=== PATIENT | male | born 1980 | race African-American/Black ===

== ENCOUNTER 2016-12-27 23:04 | Emergency (ER) | payer SELFPAY ==
[~2016-12-27] VITALS: Ht 188 cm; Wt 86.2 kg
[2016-12-27] MEDS ORDERED: NKM (23:16)
[2016-12-27 23:20] VITALS: BP 143/64
[2016-12-27] MEDS ORDERED: HYDROmorphone 1mg/ml Carpuject IVP ONE (23:30)
--- NOTE | 2016-12-27 23:34 | Emergency Room Report ---
History of Present Illness General Chief Complaint: Chest Pain Source: Patient Present Illness HPI This is a 36-year-old male with no past medical history. He presents with chief complaint abdominal pain chest pain. Onset for a day and half now. Pain is diffuse in nature. His whole abdomen is hurting. He has multiple episode vomiting. He said his 20. No blood. No diarrhea. No fever or chills. Chest pain started at the same time. Localized the left area. No radiation. No diaphoresis. No exertional component. Pain is 10 out of 10. No had this problem before. Allergies: Coded Allergies: No Known Allergies (Unverified , 12/27/16) Patient History Past Medical History: see triage record, old chart reviewed Past Surgical History: none Pertinent Family History: none Social History: Denies: smoking Immunizations: other Reviewed Nursing Documentation: PMH: Agreed, PSxH: Agreed Nursing Documentation-PMH Past Medical History: No Stated History Review of Systems Eye: Denies: eye pain, blurred vision ENT: Denies: ear pain, nose congestion, throat swelling Respiratory: Denies: cough, shortness of breath Cardiovascular: Reports: chest pain, Denies: palpitations Gastrointestinal: Reports: abdominal pain, nausea, vomiting, Denies: diarrhea Musculoskeletal: Denies: back pain, joint pain Skin: Denies: rash Neurological: Denies: headache, numbness Endocrine: Denies: increased thirst, increased urine Hematologic/Lymphatic: Denies: easy bruising All Other Systems: negative except mentioned in HPI Physical Exam Vital Signs Date Time Temp Pulse Resp B/P (MAP) Pulse Ox O2 Delivery O2 Flow Rate FiO2 12/27/16 23:13 46 15 143/64 100 Room Air vitals normal except for bradycardia Sp02 EP Interpretation: reviewed, normal General Appearance: well appearing, no apparent distress, alert Head: normocephalic, atraumatic Eyes: bilateral eye PERRL, bilateral eye EOMI ENT: hearing grossly normal, normal pharynx Neck: full range of motion, supple, no meningismus Respiratory: lungs clear, normal breath sounds, other - Diffuse tenderness with palpation Cardiovascular #1: regular rate, rhythm, no murmur Gastrointestinal: normal bowel sounds, no mass, no organomegaly, no bruit, non- distended, tenderness - diffuse Musculoskeletal: back normal, gait/station normal, normal range of motion Psychiatric: mood/affect normal Skin: warm/dry Medical Decision Making Diagnostic Impression: Primary Impression: Abdominal pain Qualified Codes: R10.84 - Generalized abdominal pain Additional Impressions: Nausea & vomiting Qualified Codes: R11.2 - Nausea with vomiting, unspecified Dehydration Chest pain Qualified Codes: R07.9 - Chest pain, unspecified ER Course patient presents with abdominal pain and nausea and vomiting. No evidence of obstruction or acute abdomen. This may be secondary to gastroenteritis versus food poisoning could be secondary to alcohol since he drinks regularly. He felt better now. Tolerated by mouth. His chest pain is probably secondary to vomiting and has reflux. Lab Results Impression labs unremarkable EKG Diagnostic Results Rate: bradycardiac Rhythm: NSR ST Segments: no acute changes Rhythm Strip Diag. Results Rhythm Strip Time: 23:34 EP Interpretation: yes Rate: 50 Rhythm: NSR, no PVC's, no ectopy Last Vital Signs Date Time Temp Pulse Resp B/P (MAP) Pulse Ox O2 Delivery O2 Flow Rate FiO2 12/27/16 23:13 46 15 143/64 100 Room Air Status: improved Disposition: HOME, SELF-CARE Condition: Stable Scripts Ondansetron (Zofran) 4 Mg Tablet 4 MG ORAL Q6H Y for Nausea & Vomiting, #10 TAB 0 Refills Prov: LIANNE GAGNON M.D. 12/28/16 Additional Instructions: Followup with your DrMae in 2-3 days if not better. Return if worse. LIANNE GAGNON M.D. Dec 27, 2016 23:34
[2016-12-27 23:49] LABS: EOSINOPHILS % (AUTO) 0.1 % (0.0-3.0); LYMPHOCYTES % (AUTO) 10.8 % (20.0-45.0); MEAN CORPUSCULAR HEMOGLOBIN 24.9 PG (27.0-31.0); MEAN CORPUSCULAR HGB CONC 32.2 G/DL (32.0-36.0); MEAN CORPUSCULAR VOLUME 77 FL (80-99); MEAN PLATELET VOLUME 6.8 FL (6.5-10.1); MONOCYTES % (AUTO) 5.6 % (1.0-10.0); NEUTROPHILS % (AUTO) 82.6 % (45.0-75.0); PLATELET COUNT 288 K/UL (150-450); RED BLOOD COUNT 5.81 M/UL (4.70-6.10); RED CELL DISTRIBUTION WIDTH 12.9 % (11.6-14.8); WHITE BLOOD COUNT 14.1 K/UL (4.8-10.8)
[2016-12-27 23:54] LABS: APPEARANCE,URINE CLEAR; KETONES,URINE 4+ (NEGATIVE); LEUKOCYTE ESTERASE ,URINE NEGATIVE (NEGATIVE); NITRITE,URINE NEGATIVE (NEGATIVE); PH,URINE 6 (4.5-8.0); PROTEIN,URINE 2+ (NEGATIVE); UROBILINOGEN,URINE 1 MG/DL (0.0-1.0)
[2016-12-28] LABS: RBC,URINE 0-2 /HPF (0 - 0); SQUAMOUS EPITHELIAL CELL,UR FEW /LPF (NONE/OCC); WBC,URINE 0 /HPF (0 - 0)
[2016-12-28 00:07] LABS: ALANINE AMINOTRANSFERASE 24 U/L (12-78); ALBUMIN/GLOBULIN RATIO 1.4 (1.0-2.7); ANION GAP 16 mmol/L (5-15); ASPARTATE AMINO TRANSFERASE 23 U/L (15-37); CALCIUM 9.6 MG/DL (8.5-10.1); CARBON DIOXIDE 23 MMOL/L (21-32); CHLORIDE 105 MMOL/L (98-107); CREATININE 1.1 MG/DL (0.55-1.30); GLOMERULAR FILTRATION RATE > 60 mL/min (>60); LIPASE 77 U/L (73-393); POTASSIUM 3.5 MMOL/L (3.5-5.1); SODIUM 144 MMOL/L (136-145); TOTAL PROTEIN 7.7 G/DL (6.4-8.2)
[2016-12-28 00:20] VITALS: BP 118/60
[2016-12-28 00:55] LABS: BILIRUBIN,DIRECT 0.3 MG/DL (0.0-0.3)
[2016-12-28 01:26] VITALS: BP 109/47
[2016-12-28] MEDS ORDERED: ZOFRAN4 MG ORAL (01:27)
[2016-12-28 01:30] VITALS: BP 109/47
--- NOTE | 2016-12-28 10:14 | Diagnostic Imaging Report ---
Clinical history: Acute chest pain Technique: Portable AP chest radiograph was obtained. Comparison: None Findings: The lungs are well inflated and clear. There is no pneumonia or pulmonary edema. There is no pleural effusion or pneumothorax. The cardiac and mediastinal silhouettes are normal in appearance. The bony thorax is unremarkable. Impression: No evidence of acute disease in the chest.
--- NOTE | 2016-12-28 10:20 | Diagnostic Imaging Report ---
Indication: Acute abdominal pain. Comparison: None available. Technique: Utilizing a multislice CT scanner, a CT of the abdomen and pelvis was performed without intravenous contrast. All CT scans at this facility use dose modulation, iterative reconstruction, and/or weight based dosing when appropriate to reduce radiation dose to as low as reasonably achievable. CTDIvol (mGy): 14 DLP (mGy-cm): 654 Findings: Lack of intravenous contrast limits evaluation of the visceral and vascular structures. Lack of intrapelvic and intra-abdominal fat also diminishes sensitivity of exam findings. The visualized lung bases are clear. The liver is diffusely low in attenuation compatible with hepatic steatosis. Nonspecific focal calcifications in the liver near the gallbladder fossa may reflect calcified granulomas. The gallbladder is unremarkable. The pancreas, spleen and adrenal glands are unremarkable. A normal left kidney is not visualized. 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 There is compensatory hypertrophy of the right kidney. No obstructing calculus noted. There is no evidence of hydronephrosis or asymmetric perirenal inflammatory change. The urinary bladder is grossly unremarkable. The pelvic organs are grossly unremarkable. The colon is decompressed and not optimally evaluated. There is no evidence of obstruction. There is no extraluminal gas or fluid. Normal appendix. There are no enlarged lymph nodes. There is no significant calcified atherosclerotic disease of the the abdominal aorta. The osseous structures are unremarkable. Impression: No evidence of acute intra-abdominal or pelvic pathology. Hepatic steatosis. 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 Normal appendix. Suboptimal evaluation of the decompressed colon.
--- NOTE | 2016-12-28 18:32 | Cardiology Report ---
APPROVED REPORT EKG Measurement Heart [id number] MI 148P81 [id number] Sinus bradycardia Prolonged QT Abnormal ECG
== END 2016-12-28 01:30 | disposition home or self-care (01) ==
LOC: EMR 23:55
DX: R10.9 Unspecified abdominal pain (principal); R11.2 Nausea with vomiting, unspecified; E86.0 Dehydration; R07.9 Chest pain, unspecified
CPT/HCPCS: 36415; 71010; 74176; 80053; 80307; 81003; 82248; 83690; 84484; 85025; 93005; 96361; 96374; 96375; 99284; J1170; J2405